=== PATIENT | female | born 1995 | race Caucasian/White ===

== ENCOUNTER 2016-08-26 01:16 | Emergency (ER) | payer OTHER ==
[~2016-08-26] VITALS: Ht 165.1 cm; Wt 68.2 kg
[2016-08-26 01:19] VITALS: TEMP 98.9
[2016-08-26] MEDS ORDERED: ZYRTEC 10MG10 MG PO (01:21)
[2016-08-26] MEDS ORDERED: ORAL BIRTH CONTROL (01:22)
[2016-08-26 02:15] LABS: PH 7 (5-8); URINE APPEARANCE Clear; URINE BACTERIA None Seen /hpf; URINE BILIRUBIN Negative (NEGATIVE); URINE BLOOD 2+ (NEGATIVE); URINE COLOR Yellow; URINE GLUCOSE Negative (NEGATIVE); URINE KETONE Negative (NEGATIVE); URINE UROBILINOGEN Negative (NEGATIVE)
[2016-08-26] MEDS ORDERED: NORCO 325 MG-51 TAB PO (02:28)
[2016-08-26] MEDS ORDERED: LEVAQUIN 2250 MG/TAB PO (02:28)
[2016-08-26 02:57] VITALS: BP 126/97; PULSE 94
== END 2016-08-26 03:00 | disposition home or self-care (01) ==
LOC: COL.ER 01:16
PROVIDERS: Nurse Practitioner
DX: N39.0 Urinary tract infection, site not specified (principal)
CPT/HCPCS: J1885